=== PATIENT | male | born 1945 | race Caucasian/White ===

== ENCOUNTER 2020-02-13 12:13 | Emergency (ER) | payer MEDICARE, BC ==
[~2020-02-13] VITALS: Ht 172.7 cm; Wt 75.0 kg
[~2020-02-13 12:13] MED LIST: ASPIR-LOW81 MG PO; LISINOPRIL20 MG PO; TRIAMTERENE W/H1 CAP PO
[2020-02-13 12:26] VITALS: TEMP 97.7
[2020-02-13] MEDS ORDERED: ASPIRIN 81M81 MG/TA2 (12:48)
[2020-02-13 13:58] VITALS: BP 155/88; PULSE 65
== END 2020-02-13 13:58 | disposition home or self-care (01) ==
LOC: COL.ER 12:13
DX: S91.311A Laceration without foreign body, right foot, initial encounter (principal); Z87.891 Personal history of nicotine dependence; Z79.82 Long term (current) use of aspirin; W20.8XXA Other cause of strike by thrown, projected or falling object, initial encounter